=== PATIENT | male | born 1975 | race African-American/Black ===

== ENCOUNTER 2018-05-17 19:52 | Emergency (ER) | payer OTHER ==
[~2018-05-17] VITALS: Ht 193 cm; Wt 140.6 kg
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
[2018-05-17 21:05] VITALS: BP 133/78
[2018-05-17] MEDS ORDERED: IBUPROFEN600 MG ORAL (21:15)
[2018-05-17] MEDS ORDERED: ROBAXIN-750750 MG PO (21:15)
--- NOTE | 2018-05-17 21:20 | NUR ---
ED Nurse Note: PT BEING D/C TO HOME, AWAKE, ALERT AND ORIENTED X 4, PT IS AMBULATORY, WITH FAMILY, GIVEN PRESCRIPTINS AND F/U INFO, ARMBAND REMOVED, NAD NOTED DURING D/C TO HOME.
[2018-05-17 21:25] VITALS: BP 133/78
--- NOTE | 2018-05-18 09:33 | Diagnostic Imaging Report ---
Indication: Right index finger pain Technique: 3 views right hand Comparison: none Findings: No acute fractures. No dislocations. The joint spaces are preserved. The second distal interphalangeal joint appears slightly subluxed on the lateral view, but this is probably an artifact of positioning as it is not evident on any of the other views. Impression: No definite acute process
--- NOTE | 2018-05-18 09:34 | Diagnostic Imaging Report ---
Indication: Chest pain Technique: One view of the chest Comparison: none Findings: Lungs and pleural spaces are clear. Heart size is normal Impression: No acute process
== END 2018-05-17 21:25 | disposition home or self-care (01) ==
LOC: EMR 20:35
DX: R07.9 Chest pain, unspecified (principal); M25.541 Pain in joints of right hand; V43.52XA Car driver injured in collision with other type car in traffic accident, initial encounter; Y92.410 Unspecified street and highway as the place of occurrence of the external cause
CPT/HCPCS: 71045; 99284